=== PATIENT | male | born 1955 | race Caucasian/White ===

== ENCOUNTER 2025-08-06 06:56 | Outpatient (CLI) | payer MEDICARE, SELFPAY ==
--- OUTSIDE RECORDS SUMMARY | 2022-12-24 06:00 | XMS_ITS | Continuity of Care Document ---
Author Organization [facility] [place] Address [address] [place] [address] Phone Care Team Providers Care Interactive Marketing Strategist Name Role Phone Cortez Haywood MD Unavailable Unavailable Allergies, Adverse Reactions, Alerts Substance Reaction Status Criticality No Known Allergies Active No Inform ation Medications Medication Instructions Dosage Effective Dates (start - stop) Status Comments polymyxin B sulfate 10,000 unit-trimethoprim 1 mg/mL eye drops instill 1 drop by ophthalmic route in the operated eye BID; to begin after being seen in the office for first post op visit. - Active prednisolone acetate 1 % eye drops,suspension Instill 1 drop into Operated Eye QID x 2 weeks, BID x 2 weeks; to begin after being seen in the office for first post op visit. - Active ketorolac 0.5 % eye drops instill 1 drop in the operated eye 3 times a day x 1 month; to begin after being seen in the office for first post op visit. - Active metformin 500 mg tablet take 1 tablet by oral route 2 times every day with morning and evening meals 500 MG - Active famotidine 40 mg tablet take 1 tablet by oral route every day at bedtime 40 MG - Active losartan 50 mg tablet take 1 tablet by o ral route every day 50 MG - Active atorvastatin 40 mg tablet take 1 tablet by oral route every day 40 MG - Active gabapentin 100 mg capsule take 1 capsule by oral route 3 times every day 100 MG - Active finasteride 5 mg tablet take 1 tablet by oral route every day 5 MG - Active montelukast 10 mg tablet take 1 tablet by oral route every day in the evening 10 MG - Active Procedures Procedure Date No Charge Refraction Post-op Follow-up Visit Post-op Follow-up Visit Remove Cataract, Insert Lens No Charge Refraction Post-op Follow-up Visit Post-op Follow-up Visit Remove Cataract, Insert Lens No Charge Refraction Office/outpatient Visit, Est Corneal Topography Fundus Photography W/ Report No Charge Refraction Office/outpatient Visit, Est IOLMaster IOLMaster Post-op Follow-up Visit Post-op Follow-up Visit Post-op Follow-up Visit Pterygium Excison W/Graft Fundus Photography W/ Report No Charge Refraction No Charge GDX Retina Corneal Topography Office/outpatient Visit, [facility] IOLMaster IOLMaster Advance Directives Directive Yes / No Effective Date File Name No Information Encounters Encounter Description Practice Location Reason(s) For Visit Diagnoses Date Provider Providers Copied on Encounter [facility], [address] [address], [place], [place], [id number], [place] tel:[phone] SEC Anupam ALEMAN Professional Post-Op (chief complaint) Post op visit 3 Yobany Toro. [address] [facility], [facility] [address], [place], [place], [address], [place]. tel:[phone] Referring Provider: Chelly Corona OD L, [address], [place], [address]. tel:[phone] [facility], [address], [place], [place], [address], [place] tel:[phone] SEC Anupam ALEMAN Professional 1 day s/p PCIOL (chief complaint) Post op visit 3 Yobany Toro. [address] [employer], [address], [place], [place], [address], [place]. tel:[phone] Referring Provider: Chellylaxmi Corona OD L, [address], [place], [address]. tel:[phone] [facility], [address] [place] [address] [address], [place], [place], [address], [place] tel:[phone] [facility] [place] No Information 3 Sai Mccoy. [address] [place] [address], [address], [place], [place], [address], [place]. tel:[phone] Referring Provider: Chelly Corona OD L, [address], [place], [address]. tel:[phone] [facility], [address] [place] [address] [address], [place], [place], [address], [place] tel:[phone] SEC Anupam ALEMAN Professional 2 wk CE PO (11/11/22) (chief complaint) Post op visit 3 Yobany Toro. [address] [employer], [address], [place], [place], [address], [place]. tel:[phone] Referring Provider: Chelly Corona OD L, [address], [place], [address]. tel:[phone] [facility], [address], [place], [place], [address], tel:[phone] SEC Anupam ALEMAN Professional 1 day CE PO (chief complaint) Post op visit 3 Yobany Toro. [address] [facility], [address], [place], [place], [address], [place]. tel:[phone] Referring Provider: Chelly Corona OD L, [address] [place] [address], [address]. tel:[phone] [facility], [address], [place], [place], [address], tel:[phone] [facility] [place] No Information 3 Sai Darius. [facility] [employer], [address], [place], [place], [address], [place]. tel:[phone] Referring Provider: Chelly Corona OD L, [address] [place] [address], [address]. tel:[phone] [facility], [address], [place], [place], [address], [place] tel:[phone] SEC [place] No Information 2 [place] Darius. [address], [address], [place], [place], [address], [place]. tel:[phone] [place]pa [place] [facility] [place] [address], [place], [place], [address], tel:[phone] SEC [place] 6 month cataract eval (chief complaint) Type 2 diabetes mellitus without complication sCombined forms of age-related cataract, bilateral 2 [place] Darius. [address], [address], [place], [place], [address], [place]. tel:[phone] Referring Provider: Chelly Corona OD L, [address] [place] [address], [address]. tel:[phone] [place]pa [place], [facility] [place] [facility] [employer] [address], [place], [place], [address], tel:[phone] SEC [place] N [place] Cataract evaluation (chief complaint) Combined forms of age-related cataract, bilateralTyp e 2 diabetes mellitus without complication s 2 Sai Mccoy. [address], [address], [place], [place], [address], [place]. tel:[phone] Referring Provider: Chelly Corona OD L, [address], [place], [address]. tel:[phone] [employer] [facility] [employer] [facility], [address], [place], [place], [address], tel:[phone] SEC Guille N Lindberg[place] 2 wk Pterygium excision po (chief complaint) Post op visit Jan- 2 Sai Mccoy. [facility] [employer], [address], [place], [place], [address], [place]. tel:[phone] Referring Provider: Chelly Corona OD L, [address], [place], [address]. tel:[phone] [employer] [facility], [facility] [address], [place], [place], [address], tel:[phone] SEC Guille N Lind[place] 1 PTY Post-Op (chief complaint) Post op visit Jan- 2 Sai Mccoy. [facility] [employer], [address], [place], [place], [address], [place]. tel:[phone] Referring Provider: Chelly Corona OD L, [address], [place], [address]. tel:[phone] [employer] [facility], [address], [place], [place], [address], tel:[phone] SEC [place]heba N [place] Post-Op (chief complaint) Post op visit 2 Sai Mccoy. [address], [address], [place], [place], [address], . tel:[phone] Referring Provider: Chelly Corona OD L, [address], [place], [address]. tel:[phone] [facility], [address] [place] [address] [address], [place], [place], [address], tel:[phone] [facility] No Information 2 Sai Mccoy. [address] [place] [address] [employer] [facility], [address], [place], [place], [address], [place]. tel:[phone] Referring Provider: Chelly Corona OD L, [address], [place], [address]. tel:[phone] Office/outpa tient Visit, [facility], [address] [place] [address] [address], [place], [place], [address], tel:[phone] SEC Guille Galloway Cataract Evaluation (chief complaint) Peripheral pterygium, progressive, right eyeCombined forms of age-related cataract, bilateralTyp e 2 diabetes mellitus without complication s 1 Sai Mccoy. [address] [place] [address] [employer] [facility], [address], [place], [place], [address], . tel:[phone] Referring Provider: Chelly Corona OD L, [address], [place], [address]. tel:[phone] [facility], [address] [place] [address] [address], [place], [place], [address], [place] tel:[phone] SEC Guille N [place] No Information 1 Sailaura Mccoy. [address] [place] [address] [employer] [facility], [address], [place], [place], [address], . tel:[phone] Referring Provider: Chelly Corona OD L, [address], [place], [address]. tel:[phone] Family History Family Member Type Diagnosis Age At Onset Problem Family history of degenerati ve disorder of macula Problem Family history of Diabetes ernie schmitt Payers Payer name Insurance type Covered alliance party ID Authoriza tion(s) No Information Social History Type Description Quantity Date Captured Comments Alcohol Use Details No Caffeine Use Details Tobacco Use Status Ex-cigarette smoker 023 Smoking Status Former smoker Smoking Tobacco Use Details Cigarette: Age Started: 19, Age Stopped: 43, Years Used 24 Cigarette: 1 Packs per day, Pack Year: 24 Sex Male Chief Complaint And Reason For Visit From encounter dated '12/24/2022 11:00'. Post-Op (chief complaint). Description: The 67 year old patient presents for a 2 week post op CE OD(Dr. Gibbs). Patient is using Ketorolac tid OD and Pred bid OD. Patient states OD is doing good. Patient states vision OD seems pretty good. Reason For Referral Reason For Referral No Information Plan Of Treatment Date Type Action Status Goal Tobacco cessation counseling completed Goal Tobacco cessation counseling completed Goal Tobacco cessation counseling completed Goal Tobacco cessation counseling completed Patient Education Type 2 Diabetes: Care I nstructions completed Patient Education Cataracts: Care Instruc tions completed Patient Education Cataract Surgery: What to Expect at Home completed History Of Present Illness Encounter Date Complaint History Of Prese nt Illness Post-Op The 67 year old patient presents for a 2 week post op CE OD (Dr. Gibbs). Patient is using Ketorolac tid OD and Pred bid OD. Patient states OD is doing good. Patient states vision OD seems pretty good. 1 day s/p PCIOL The 67 year old patient presents for evaluation of 1 day s/p PCIOL in the right eye. Patient states VA is blurry with the right eyes. Patient instructed to use Pred, Ket, and Poly as well as use of eye shield. 2 wk CE PO (11/11/22) The 67 year old patient presents for evaluation of 2 wk CE PO (11/11/22) in the left eye. Pt reports he is using Pred BID OS and Ketorolac TID OS. Pt reports OS is doing good and he is seeing better since CE. Pt reports he would like to proceed with CE, OD, because he has trouble reading street signs while driving, avoids driving at night due to his vision, and is bothered by glare from lights, x several mos. 1 day CE PO The 67 year old patient presents for evaluation of 1 day CE PO in the left eye. Pt reports he is using Poly QID OS, Pred QID OS, and Ketorolac QID OS. PO instructions were given, explained, and understood by pt. Pt reports no pain or discomfort and VA is a lot better since CE, OS. 6 month cataract eval The 67 yea r old patient presents for evaluation of 6 month cataract eval in the right eye and left eye. Pt c/o the OS has definitely gotten worse, vision is blurry OU, difficult to see street signs OU, and has glaring at night time and daytime OU. Pt is not using gtts currently. Pt is NIDDM II does not check BS. Cataract evaluation The 67 year old patient presents for evaluation of Cataract evaluation in the right eye and left eye. Hx of Cataracts OU and Pterygium s/p Excision OD. Pt states VA blurry, like looking through a fog. Pt states it's difficult to drive at night due to headlight glare, having to get closer to street signs to see them clearly, DVA gradual decrease OU x 6+ mos. Pt also finds cleaning a sweep more difficult.Pt is NIDDM II and is unsure of A1c, but in the normal range. 2 wk Pterygium excision po The [age] year old patient presents for evaluation of 2 wk Pterygium excision po in the right eye 12-31-21. Pt using Pred and Poly OD, pt has been using the drops TID trying to hurry up the healing for the past couple days. Pt states OD is still very scratchy. 1 PTY Post-Op The 66 year old male presents for evaluation of 1 PTY Post-Op in the right eye 01/01/22. Pt reports his last week has been immensely difficult with OS VA being poor and having OD patched constantly. Pt is using Poly BID OD and Pred BID OD. Pt denies pain or discomfort at this time. Post-Op The 66 year old male presents for a 1 day post op Pterygium excision with autograft OD. Patient to begin Pred and Poly qid OD. Patient denies any pain or discomfort OD. Patient states OD itches. Cataract Evaluation The 66 year old male presents for evaluation of Cataract Evaluation in the right eye and left eye. Pt states that for years he noticed that his vision would be blurry when he would be inside with fluorescent lights and recently noticed that his vision is blurry even while outside at ball games. Pt does not currently use any eye gtts. Pt has not had any eye surgeries or procedures in the past. Pt states that he has noticed he has become sensitive to glare from headlights at night. Pt is NIDDM Type II with last A1C unknown and last blood sugar of 130 x 2 days. Followed by PCP. Pt states that he has noticed that he has to be closer to road signs to be able to read them now and doing work up close has become a little more difficult. Pt states that he has noticed that he feels dizzy when he is performing tasks like sweeping. Functional Status Date Functional Assessmen t No Information Instructions Date Instruction Additional Infor jeanette Impression/Plan Impression/Plan Impression/Plan Impression/Plan Impression/Plan Impression/Plan Impression/Plan Impression/Plan Impression/Plan Impression/Plan Assessments Type Assessment Date assessment Post op visit Patient Care Teams Name Effective Dates (start - stop) Status Members No Information
--- OUTSIDE RECORDS SUMMARY | 2024-12-13 03:10 | XMS_ITS ---
Author Organization [facility] Address [address] [place], [place] [address] Care Team Providers Care Solar Installation Helper Name Role Phone ADDY FORREST Unavailable [phone] José Miguel Cramer Unavailable Unavailable REASON FOR VISIT Patient presents for at-risk foot care . The patient has painful toenails and calluses that are causing difficulty with ambulation and shoegear. The onset is gradual Medications Medication SIG (Take, Route, Frequency, Duration) Notes Start Date End Date Status Ketorolac Tromethamine 0.5 % Ophthalmic; Duration: 30 Days Active Metoprolol Succinate ER 50 MG Oral; Duration: 30 Days Acti ve Eliquis 5 MG Oral; Duration: 30 Days Active prednisoLONE Acetate 1 % Ophthalmic; Dur ation: 30 Days Active Encounters Encounter Location Date Provider Diagnosis [address] [id number] 12/13/2024 ADDY FORREST Tinea unguium B35.1 ; Acquired keratosis [keratoderma] palmaris et plantaris L85.1 ; Atherosclerosis of [place] arteries of extremities with intermittent claudication, bilateral legs I70.213 ; Pain in right foot M79.671 and Pain in left foot M79.672 Assessments Encounter Date Diagnosis (ICD Code) Assessment Notes Treatment Notes Treatment Clinical Notes Section Notes 12/13/2024 Tinea unguium (ICD-10 - B35.1) Nails 1-5 Bilateral were debrided extensively with nail nippers and emery board, reducing length and girth to pink healthy tissue with any subungual debris and necrotic tissue removed 12/13/2024 Acquired keratosis [keratoderma] palmaris et plantaris (ICD-10 - L85.1) A total of 2 corns or calluses, as described in the note above, were cut and pared utilizing a #15 blade. Emollient: Recommend that the patient use an emollient such as iuom-isw-prquix r Eucerin cream, Vanicream, or other lotion to the affected area. 12/13/2024 Atherosclerosis of [place] arteries of extremities with intermittent claudication, bilateral legs (ICD-10 - I70.213) 12/13/2024 Pain in right foot (ICD-10 - M79.671) 12/13/2024 Pain in left foot (ICD-10 - M79.672) Plan Of Treatment Treatment Notes Assessment Notes Tinea unguium Nails 1-5 Bilateral were debrided extensively with nail nippers and emery board, reducing length and girth to pink healthy tissue with any subungual debris and necrotic tissue removed Acquired keratosis [keratode rma] palmaris et plantaris A total of 2 corns or calluses, as described in the note above, were cut and pared utilizing a #15 blade. Emollient: Recommend that the patient use an emollient such as casv-wsx-dktkwud Eucerin cream, Vanicream, or other lotion to the affected area. Next Appt Details Follow Up: 10 - 12 weeks, Re ason: At-Risk Foot care, sooner if problems develop. Provider Name:JOLANTA NIEVES, 09/12/2025 08:50:00 AM, [address] [place] [address], [id number], Progress Notes * NELY COOKDOB:1955 (70 yo M)Acc No.[id number]:12/13/2024 Patient: NELY PINTO Provider: Sanjuana Forrest DPM :1955 A ge:69 Y S ex:Male Date:12/13/2024 Address:[address] [place], [place] [id number] Subjective: * Chief Complaints: * 1 . Patient presents for at-risk foot care . The patient has painful toenails and calluses that are causing difficulty with ambulation and shoegear. The onset is gradual. * HPI: H PI: General care P atient presents to the office for diabetic foot care. Patient states that their nails are thickened, elongated and painful. Patient states that it is aggravated by shoe gear. Onset is gradual., Patient is taking prescription blood thinners., Date last seen by Dr. Cramer was 11/2024., Initials mca. * ROS: G eneral / Constitutional: Patient denies w eakness. E ndocrine: Patient denies c old intolerance, hair loss, irregular menses. R espiratory: Patient denies c hronic cough, shortness of breath, sputum production. C ardiovascular: Patient denies c hest pain, history of SD, irregular heartbeat. M usculoskeletal: Patient complains of a rch pain, hammertoes. ? P eripheral Vascular: Patient denies b lanching of skin, cold extremities, decreased sensation in extremities. S kin: Patient complains of f ungal nails, nail changes, calluses and corns. N eurologic: Patient denies d izziness, gait abnormality, headache. * Medical History: * Medications: T aking Eliquis 5 MG Tablet Oral , Taking Metoprolol Succinate ER 50 MG Tablet Extended Release 24 Hour Oral , Taking Ketorolac Tromethamine 0.5 % Solution Ophthalmic , Taking prednisoLONE Acetate 1 % Suspension Ophthalmic , Medication List reviewed and reconciled with the patient Objective: * Vitals: * Examination: P hysical Examination: General appearance: A lert, pleasant, well-nourished and in no acute distress. D ermatologic: Skin findings: S kin is thin, atrophic and lacking pedal hair. Hypertrophic / hyperkeratotic lesion: p lantar aspect of the right 5th metatarsal head, plantar aspect of the left 1st metatarsal head. Nail pathology: N ails 1, 2, 3, 4, and 5 bilateral are elongated, thick, discolored, and dystrophic with subungual debris. They are painful to palpation. ? V ascular: Dorsalis pedis pulse: 1 /4 b ilateral. Posterior tibial pulse: 0 /4 bilateral. Capillary refill: g reater than 3 seconds. Edema: N o edema bilateral. N eurologic: Gross sensation G rossly intact to light touch. There is negative Tinel's sign. M usculoskeletal: Muscle Strength M uscle strength is 5/5 in regards to dorsiflexion, plantarflexion, inversion, and eversion in bilateral lower extremities. ? Assessment: * Assessment: 1. T brendaa ungjefferyum - B35.1 (Primary) 2 . A cquired keratosis [keratoderma] palmaris et plantaris - L85.1 3 . A therosclerosis of [place] arteries of extremities with intermittent claudication, bilateral legs - I70.213 4 . P ain in right foot - M79.671 5 . P ain in left foot - M79.672 Plan: * Treatment: 2. A cquired keratosis [keratoderma] palmaris et plantaris Notes: A total of 2 corns or calluses, as described in the note above, were cut and pared utilizing a #15 blade. Emollient: Recommend that the patient use an emollient such as vsjq-lsl-ywjfisp Eucerin cream, Vanicream, or other lotion to the affected area. * Follow Up: 1 0 - 12 weeks (Reason: At-Risk Foot care, sooner if problems develop.) * Billing Information: * Visit Code: 33948 Office Visit, Est Pt., Level 3. * Procedure Codes: * Electronic signature of ADDY FORREST DPM on 08/06/2025 at 07:07 AM CDT Sign off status: Pending * Provider: Sanjuana Forrest DPM Date: 0 12/13/2024 Generated for Dustin webster/Nirav/Dorotaitting on: 0 08/06/2025 07:07 AM CDT History and Physical Notes * HPI (History of Present Illness) Category Sub-Category Detail Notes Category Not es HPI General care Patient presents to the office for diabetic foot care. Patient states that their nails are thickened, elongated and painful. Patient states that it is aggravated by shoe gear. Onset is gradual., Patient is taking prescription blood thinners., Date last seen by Dr. Cramer was 11/2024., Initials mca Examination Category Sub-Category Detail Notes Category Not es Dermatologic Skin findings: Skin is thin, at rophic and lacking pedal hair Nail pathology: Nails 1, 2, 3, 4, an d 5 bilateral are elongated, thick, discolored, and dystrophic with subungual debris. They are painful to palpation Hypertrophic / hyperkeratotic lesion: pl tl aspect of the right 5th metatarsal head, plantar aspect of the left 1st metatarsal head Neurologic Gross sensation Grossly intact t o light touch. There is negative Tinel's sign Vascular Dorsalis pedis pulse: 1/4 bilateral Edema: No edema bilateral Capillary refill: greater than 3 secon ds Posterior tibial pulse: 0/4 bilateral Physical Examination General appearance: Alert, pleasant, well-nourished and in no acute distress Musculoskeletal Muscle Strength Muscle strength is 5/5 in regards to dorsiflexion, plantarflexion, inversion, and eversion in bilateral lower extremities
--- OUTSIDE RECORDS SUMMARY | 2025-05-09 04:30 | XMS_ITS ---
Author Organization [facility] Address [address] [place], [place] [id number] Care Team Providers Care Bead Preparer Name Role Phone ADDY FORREST Unavailable [phone] José Miguel Cramer Unavailable Unavailable JOLANTA HENSLEY Unavailable [phone] Allergies No Known Allergies REASON FOR VISIT *General care Medications Medication SIG (Take, Route, Frequency, Duration) Notes Start Date End Date Status prednisoLONE Acetate 1 % Ophthalmic; Dur ation: 30 Days Active Metoprolol Succinate ER 50 MG Oral; Duration: 30 Days Acti ve Ketorolac Tromethamine 0.5 % Ophthalmic; Duration: 30 Days Active Eliquis 5 MG Oral; Duration: 30 Days Active Vital Signs Height 70.00 in 05/09/2025 Weight 235 lbs 05/09/2025 BMI 33.72 kg/m2 05/09/2025 Height-cm 177.80 cm 05/09/2025 Weight-kg 106.6 kg 05/09/2025 Encounters Encounter Location Date Provider Diagnosis [address] [id number] 05/09/2025 JOLANTA HENSLEY Tinea unguium B35.1 ; Acquired keratosis [keratoderma] palmaris et plantaris L85.1 ; Atherosclerosis of [place] arteries of extremities with intermittent claudication, bilateral legs I70.213 ; Pain in right foot M79.671 and Pain in left foot M79.672 Assessments Encounter Date Diagnosis (ICD Code) Assessment Notes Treatment Notes Treatment Clinical Notes Section Notes 05/09/2025 Tinea unguium (ICD-10 - B35.1) Nails 1-5 Bilateral were debrided extensively with nail nippers and emery board, reducing length and girth to pink healthy tissue with any subungual debris and necrotic tissue removed 05/09/2025 Acquired keratosis [keratoderma] palmaris et plantaris (ICD-10 - L85.1) A total of 5 corns or calluses, as described in the note above, were cut and pared utilizing a #15 blade 05/09/2025 Atherosclerosis of [place] arteries of extremities with intermittent claudication, bilateral legs (ICD-10 - I70.213) Patient educated on risks and aggravating factors of PVD, including conservative treatment options such as a diet and exercise regimen to aid in slowing progression of vascular disease. Check and protect LE bilateral daily. Call if any changes or concerns. Consider orthotics 05/09/2025 Pain in right foot (ICD-10 - M79.671) 05/09/2025 Pain in left foot (ICD-10 - M79.672) Plan Of Treatment Treatment Notes Assessment Notes Tinea unguium Nails 1-5 Bilateral were debrided extensively with nail nippers and emery board, reducing length and girth to pink healthy tissue with any subungual debris and necrotic tissue removed Acquired keratosis [keratode rma] palmaris et plantaris A total of 5 corns or calluses, as described in the note above, were cut and pared utilizing a #15 blade Atherosclerosis of [place] ar teries of extremities with intermittent claudication, bilateral legs Patient educated on risks and aggravating factors of PVD, including conservative treatment options such as a diet and exercise regimen to aid in slowing progression of vascular disease. Check and protect LE bilateral daily. Call if any changes or concerns. Consider orthotics Next Appt Details Follow Up: 10 - 12 weeks, Re ason: At-Risk Foot care, sooner if problems develop. Provider Name:JOLANTA NIEVES, 09/12/2025 08:50:00 AM, [address] [place] [address], [id number], Progress Notes * NELY COOKDOB:1955 (70 yo M)Acc No.[id number]:05/09/2025 Patient: NELY PINTO Provider: Carmella HENSLEY :1955 A ge:70 Y S ex:Male Date:05/09/2025 Address:[address] [place] [address], [place] [address] Subjective: * Chief Complaints: * 1 . *General care. * HPI: H PI: General care P vlad presents to the office for diabetic foot care. He plays and coaches golf and fishing. He has had a wound sub left 1st previously which is not a dsicolored callus with pain. Patient states that their nails are thickened, elongated and painful. Patient states that it is aggravated by shoe gear. Onset is gradual. Patient is taking prescription blood thinners. Date last seen by Dr. Cramer was 03/2025. Initials sea. * ROS: G eneral / Constitutional: Patient denies w eakness. E ndocrine: Patient denies c old intolerance, hair loss, irregular menses. R espiratory: Patient denies c hronic cough, shortness of breath, sputum production. C ardiovascular: Patient denies c hest pain, history of [place], irregular heartbeat. M usculoskeletal: Patient complains of a h pain, hammertoes. ? P eripheral Vascular: Patient denies b lanching of skin, cold extremities, decreased sensation in extremities. S kin: Patient complains of f ungal nails, nail changes, calluses and corns. N eurologic: Patient denies d izziness, gait abnormality, headache. * Medical History: M edical History Verified. * Family History: F ather: PRN - Father: :: Stroke,,known absent , :: Heart disease,,known absent . S ister: SIB - Sister: :: Cancer,,known absent . * Social History: M igrated Social History: M igrated Social History: History of tobacco use : , Smoking Status : Former tobacco user. * Medications: T aking Eliquis 5 MG Tablet Oral , Taking Metoprolol Succinate ER 50 MG Tablet Extended Release 24 Hour Oral , Taking Ketorolac Tromethamine 0.5 % Solution Ophthalmic , Taking prednisoLONE Acetate 1 % Suspension Ophthalmic , Medication List reviewed and reconciled with the patient * Allergies: N .K.D.A. Objective: * Vitals: W t:235lbs, Wt-k.6 kg, Ht: 70.00 in, Ht-cm: 177.80 cm, BMI:33.72Index, Body Surface Area: 2.29. * Examination: P hysical Examination: General appearance: A lert, pleasant, well-nourished and in no acute distress. D ermatologic: Skin findings: S kin is thin, atrophic and lacking pedal hair. Hypertrophic / hyperkeratotic lesion: p lantar aspect of the bilateral 5th metatarsal head, and plantar aspect of bilateral 1st MTPJ and a left 1st sub IPJ deep painful pre-ulcerative callus with central discoloration. no heat, no fluctuance, no malodor or drainage. Area has no erythema or edema noted.. Nail pathology: N ails 1, 2, 3, [...] extremities. ? Assessment: * Assessment: 1. T inea unguium - B35.1 (Primary) 2 . A cquired keratosis [keratoderma] palmaris et plantaris - L85.1 3 . A therosclerosis of [place] arteries of extremities with intermittent claudication, bilateral legs - I70.213 4 . P ain in right foot - M79.671 5 . P ain in left foot - M79.672 Plan: * Treatment: 2. A cquired keratosis [keratoderma] palmaris et plantaris Notes: A total of 5 corns or calluses, as described in the note above, were cut and pared utilizing a #15 blade 3. A therosclerosis of [place] arteries of extremities with intermittent claudication, bilateral legs Notes: Patient educated on risks and aggravating factors of PVD, including conservative treatment options such as a diet and exercise regimen to aid in slowing progression of vascular disease. Check and protect LE bilateral daily. Call if any changes or concerns. Consider orthotics * Follow Up: 1 0 - 12 weeks (Reason: At-Risk Foot care, sooner if problems develop.) * Billing Information: * Visit Code: 77913 Office Visit, Est Pt., Level 3. * Procedure Codes: * Electronic signature of ANUPAMA KARRIESanjuana HENSLEY DPM on 08/06/2025 at 07:05 AM CDT Sign off status: Pending * Provider: Carmella HENSLEY Date: 0 05/09/2025 Generated for Dustin webster/Nirav/Keith on: 0 08/06/2025 07:05 AM CDT History and Physical Notes * HPI (History of Present Illness) Category Sub-Category Detail Notes Category Not es HPI General care Patient presents to the office for diabetic foot care. He plays and coaches golf and fishing. He has had a wound sub left 1st previously which is not a dsicolored callus with pain. Patient states that their nails are thickened, elongated and painful. Patient states that it is aggravated by shoe gear. Onset is gradual. Patient is taking prescription blood thinners. Date last seen by Dr. Cramer was 03/2025. Initials sea Examination Category Sub-Category Detail Notes Category Not es Dermatologic Skin findings: Skin is thin, at rophic and lacking pedal hair Nail pathology: Nails 1, 2, 3, 4, an d 5 bilateral are elongated, thick, discolored, and dystrophic with subungual debris. They are painful to palpation Hypertrophic / hyperkeratotic lesion: pl tl aspect of the bilateral 5th metatarsal head, and plantar aspect of bilateral 1st MTPJ and a left 1st sub IPJ deep painful pre-ulcerative callus with central discoloration. no heat, no fluctuance, no malodor or drainage. Area has no erythema or edema noted. Neurologic Gross sensation Grossly intact t o [...]
--- OUTSIDE RECORDS SUMMARY | 2025-07-11 04:30 | XMS_ITS ---
Author Organization [facility] Address [address] [place], [place] [id number] Care Team Providers Care Group Leader [employer] Processing Name Role Phone ADDY FORREST Unavailable [phone] José Miguel Cramer Unavailable Unavailable JOLANTA HENSLEY Unavailable [phone] Allergies No Known Allergies REASON FOR VISIT *General care Medications Medication SIG (Take, Route, Frequency, Duration) Notes Start Date End Date Status Ketorolac Tromethamine 0.5 % Ophthalmic; Duration: 30 Days Active prednisoLONE Acetate 1 % Ophthalmic; Dur ation: 30 Days Active Eliquis 5 MG Oral; Duration: 30 Days Active Metoprolol Succinate ER 50 MG Oral; Duration: 30 Days Acti ve Vital Signs Height 70.00 in 07/11/2025 Weight 235 lbs 07/11/2025 BMI 33.72 kg/m2 07/11/2025 Height-cm 177.80 cm 07/11/2025 Weight-kg 106.6 kg 07/11/2025 Encounters Encounter Location Date Provider Diagnosis [address] [id number] 07/11/2025 JOLANTA HENSLEY Tinea unguium B35.1 ; Acquired keratosis [keratoderma] palmaris et plantaris L85.1 ; Atherosclerosis of [place] arteries of extremities with intermittent claudication, bilateral legs I70.213 ; Pain in right foot M79.671 and Pain in left foot M79.672 Assessments Encounter Date Diagnosis (ICD Code) Assessment Notes Treatment Notes Treatment Clinical Notes Section Notes 07/11/2025 Tinea unguium (ICD-10 - B35.1) Nails 1-5 Bilateral were debrided extensively with nail nippers and emery board, reducing length and girth to pink healthy tissue with any subungual debris and necrotic tissue removed 07/11/2025 Acquired keratosis [keratoderma] palmaris et plantaris (ICD-10 - L85.1) A total of 5 corns or calluses, as described in the note above, were cut and pared utilizing a #15 blade 07/11/2025 Atherosclerosis of [place] arteries of extremities with intermittent claudication, bilateral legs (ICD-10 - I70.213) Patient educated on risks and aggravating factors of PVD, including conservative treatment options such as a diet and exercise regimen to aid in slowing progression of vascular disease. Check and protect LE bilateral daily. Call if any changes or concerns. Consider orthotics 07/11/2025 Pain in right foot (ICD-10 - M79.671) 07/11/2025 Pain in left foot (ICD-10 - M79.672) [...] pared utilizing a #15 blade Atherosclerosis of [place] ar teries of extremities with intermittent claudication, [...] develop. Provider Name:JOLANTA NIEVES, 09/12/2025 08:50:00 AM, [address] [place] [address], [id number], Progress Notes * NELY COOKDOB:1955 (70 yo M)Acc No.[id number]:07/11/2025 Patient: NELY PINTO Provider: Carmella HENSLEY :1955 A ge:70 Y S ex:Male Date:07/11/2025 Address:[address] [place] [address] Subjective: * Chief Complaints: * 1 . *General care. * HPI: H PI: General care P vlad presents to the office for diabetic foot care. Patient states that their nails are thickened, elongated and painful. Patient states that it is aggravated by shoe gear. Onset is gradual., Patient is taking prescription blood thinners., Date last seen by Dr. Brown was 05/2025., Initials nd. * ROS: G eneral / Constitutional: Patient denies w eakness. E ndocrine: Patient denies c old intolerance, hair loss, irregular menses. R espiratory: Patient denies c hronic cough, shortness of breath, sputum production. C ardiovascular: Patient denies c hest pain, history of [place], irregular heartbeat. M usculoskeletal: Patient complains of a rch pain, hammertoes. ? P eripheral Vascular: Patient denies b lanching of skin, cold extremities, decreased sensation in extremities. S kin: Patient complains of f ungal nails, nail changes, calluses and corns. N eurologic: Patient denies d izziness, gait abnormality, headache. * Medical History: N o Reported Medical History.Medical History Verified. * Surgical History: D enies Past Surgical History. * Hospitalization/Major Diagno stic Procedure: D enies Past Hospitalization. * Family History: F ather: PRN - [...] - L85.1 3 . A therosclerosis of [place] arteries of extremities with intermittent claudication, bilateral [...] a #15 blade 3. A therosclerosis of [place] arteries of extremities with intermittent claudication, bilateral [...] develop.) * Billing Information: * Visit Code: 61569 Office Visit, Est Pt., Level 3. * Procedure Codes: * Electronic signature of ANUPAMA HENSLEY DPM on 08/06/2025 at 07:07 AM CDT Sign off status: Pending * Provider: Carmella HENSLEY Date: 0 07/11/2025 Generated for Dustin webster/Nirav/Keith on: 0 08/06/2025 07:07 AM CDT History [...] blood thinners., Date last seen by Dr. Brown was 05/2025., Initials nd Examination Category Sub-Category Detail Notes Category Not [...]
--- OUTSIDE RECORDS SUMMARY | 2025-08-06 07:05 | XMS_ITS | Patient Health Record ---
Author Organization [facility] Address [address] [place], [place] [address] Care Team Providers Care Car Dryer Name Role Phone AMIRA ADDY Unavailable [phone] José Miguel Cramer Unavailable Unavailable JOSE MANUELHAFSA ACHARYAUR Unavailable [phone] ANUPAMA HENSLEYELLE Unavailable [phone] Allergies No Known Allergies Reason For Referral No Information Medications Medication SIG (Take, Route, Frequency, Duration) Notes Start Date End Date Status Ketorolac Tromethamine 0.5 % Ophthalmic; Duration: 30 Days Active prednisoLONE Acetate 1 % Ophthalmic; Dur ation: 30 Days Active Eliquis 5 MG Oral; Duration: 30 Days Active Metoprolol Succinate ER 50 MG Oral; Duration: 30 Days Acti ve Immunizations Vaccine Route Administration Date Status Comme nts Influenza, high dose seasonal Unknown 11/03/2023 Admini stered Vital Signs Height-cm 177.80 cm 07/11/2025 Weight-kg 106.6 kg 07/11/2025 Height 70.00 in 07/11/2025 Weight 235 lbs 07/11/2025 BMI 33.72 kg/m2 07/11/2025 Encounters Encounter Location Date Provider Diagnosis [address] [id number] 12/13/2024 ADDY FORREST Tinea unguium B35.1 ; Acquired keratosis [keratoderma] palmaris et plantaris L85.1 ; Atherosclerosis of [place] arteries of extremities with intermittent claudication, bilateral legs I70.213 ; Pain in right foot M79.671 and Pain in left foot M79.[address] [id number] 05/09/2025 JOLANTA HENSLEY Tinea unguium B35.1 ; Acquired keratosis [keratoderma] palmaris et plantaris L85.1 ; Atherosclerosis of [place] arteries of extremities with intermittent claudication, bilateral legs I70.213 ; Pain in right foot M79.671 and Pain in left foot M79.[address] [id number] 07/11/2025 JOLANTA HENSLEY Tinea unguium B35.1 ; Acquired keratosis [keratoderma] palmaris et plantaris L85.1 ; Atherosclerosis of [place] arteries of extremities with intermittent claudication, bilateral legs I70.213 ; Pain in right foot M79.671 and Pain in left foot M79.[address] [id number] 09/20/2024 BRIAN GARCES Tinea unguium B35.1 ; Other hammer toe(s) (acquired), right foot M20.41 ; Other hammer toe(s) (acquired), left foot M20.42 ; Pain in right toe(s) M79.674 ; Pain in left toe(s) M79.675 ; Unspecified atherosclerosis of [place] arteries of extremities, bilateral legs I70.203 ; Type 2 diabetes mellitus with diabetic peripheral angiopathy without gangrene E11.51 ; Acquired keratosis [keratoderma] palmaris et plantaris L85.1 ; Pain in right foot M79.671 and Pain in left foot M79.[address] [id number] 03/07/2025 ADDY FORREST Tinea unguium B35.1 ; Acquired keratosis [keratoderma] palmaris et plantaris L85.1 ; Atherosclerosis of [place] arteries of extremities with intermittent claudication, bilateral legs I70.213 ; Pain in right foot M79.671 and Pain in left foot M79.672 Assessments Encounter Date Diagnosis (ICD Code) Assessment Notes Treatment Notes Treatment Clinical Notes Section Notes 09/20/2024 Tinea unguium (ICD-10 - B35.1) Aseptic debridement of elongated thickened nails x 10 using sterile nippers, nails were debrided in length and thickness by 30% utilizing a nail nipper without incident. The patient was educated regarding all treatment options that include topical and oral antifungal treatments. I discussed the options of taking a sample of the nail to confirm diagnosis. Nail clippings were not sent for pathology analysis. The patient was educated why and how the fungal infection evolved in their feet and the patient was given information regarding how to prevent further infection. The patient was told to keep feet dry and change socks. The patient was told to be careful with old shoes and excessive sweating. The patient was educated regarding both OTC and prescription treatments. 09/20/2024 Other hammer toe(s) (acquired), right foot (ICD-10 - M20.41) The patient was educated regarding how to mechanically stabilize their deformity. The patient was given education about shoe recommendations specific for the condition. The patient was educated about custom orthotics and how appropriate shoes and orthotics can prevent further worsening of the deformity. The patient was educated about how bad shoe habits can worsen the condition. NSAIDS, P.T., injections and other conservative treatments were discussed. Both surgical and non surgical treatments were discussed, but conservative options were emphasized. 12/13/2024 Tinea unguium (ICD-10 - B35.1) Nails [...] the patient use an emollient such as [id number] Eucerin cream, Vanicream, or other lotion to the affected area. 03/07/2025 Tinea unguium (ICD-10 - B35.1) Nails 1-5 Bilateral were debrided extensively with nail nippers and emery board, reducing length and girth to pink healthy tissue with any subungual debris and necrotic tissue removed 03/07/2025 Acquired keratosis [keratoderma] palmaris et plantaris (ICD-10 - L85.1) A total of 2 corns or calluses, as described in the note above, were cut and pared utilizing a #15 blade 05/09/2025 Tinea unguium (ICD-10 - B35.1) Nails [...] and pared utilizing a #15 blade 07/11/2025 Tinea unguium (ICD-10 - B35.1) Nails [...] utilizing a #15 blade 07/11/2025 Atherosclerosis of [place] arteries of extremities with intermittent claudication, bilateral legs (ICD-10 - I70.213) Patient educated on risks and aggravating factors of PVD, including conservative treatment options such as a diet and exercise regimen to aid in slowing progression of vascular disease. Check and protect LE bilateral daily. Call if any changes or concerns. Consider orthotics 05/09/2025 Atherosclerosis of [place] arteries of extremities with intermittent claudication, bilateral legs (ICD-10 - I70.213) Patient educated on risks and aggravating factors of PVD, including conservative treatment options such as a diet and exercise regimen to aid in slowing progression of vascular disease. Check and protect LE bilateral daily. Call if any changes or concerns. Consider orthotics 03/07/2025 Atherosclerosis of [place] arteries of extremities with intermittent claudication, bilateral legs (ICD-10 - I70.213) 12/13/2024 Atherosclerosis of [place] arteries of extremities with intermittent claudication, bilateral legs (ICD-10 - I70.213) 09/20/2024 Other hammer toe(s) (acquired), left foot (ICD-10 - M20.42) 12/13/2024 Pain in right foot (ICD-10 - M79.671) 09/20/2024 Pain in right toe(s) (ICD-10 - M79.674) 03/07/2025 Pain in right foot (ICD-10 - M79.671) 05/09/2025 Pain in right foot (ICD-10 - M79.671) 07/11/2025 Pain in right foot (ICD-10 - M79.671) 07/11/2025 Pain in left foot (ICD-10 - M79.672) 05/09/2025 Pain in left foot (ICD-10 - M79.672) 03/07/2025 Pain in left foot (ICD-10 - M79.672) 09/20/2024 Pain in left toe(s) (ICD-10 - M79.675) 12/13/2024 Pain in left foot (ICD-10 - M79.672) 09/20/2024 Unspecified atherosclerosis of [place] arteries of extremities, bilateral legs (ICD-10 - I70.203) Patient educated on risks and aggravating factors of PVD, including conservative treatment options such as a diet and exercise regimen to aid in slowing progression of vascular disease 09/20/2024 Type 2 diabetes mellitus with diabetic peripheral angiopathy without gangrene (ICD-10 - E11.51) Patient educated on proper diabetic foot care and the importance of tight glycemic control in regards to the prevention of diabetic manifestations and symptomatology in lower extremity. Explained to patient the importance of keeping interdigital spaces dry, not walking bare foot, having supportive shoe gear, using moisturizer to skin on feet daily especially in winter months, and checking feet daily for any new lesions or areas suspicious of trauma infection or ulceration. Explained to patient to return to ED if any change in foot health associated with signs of systemic infection including but not limited to nausea, vomiting, fever. 09/20/2024 Acquired keratosis [keratoderma] palmaris et plantaris (ICD-10 - L85.1) Pre-ulcerative keratoderma debrided sharply down to the level of healthy tissue using a 15 blade to bilateral foot sub fifth metatarsal head. After removal of overlying extensive hyperkeratosis, healthy tissue was noted and care was taken to assure that no undermining or probing was present. It should be noted that no probing was noted and no infection or drainage was noted. 09/20/2024 Pain in right foot (ICD-10 - M79.671) 09/20/2024 Pain in left foot (ICD-10 - M79.672) Plan Of Treatment Next Appt Details Provider Name:JOLANTA Zac NIEVES, 09/12/2025 08:50:00 AM, [address] [place] [address], [id number], Insurance Providers Payer Name Payer Address Payer Phone Subscriber Number Group Number Insured Name Patient Relationship to Insured Coverage Start Date Coverage End Date [facility] [address] [address] [place], [place] [id number] NELY COOK Self - patient is the insured
--- OUTSIDE RECORDS SUMMARY | 2025-08-06 07:06 | XMS_ITS | Encounter Summary ---
Author Organization [employer] Address 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
--- OUTSIDE RECORDS SUMMARY | 2025-08-06 07:06 | XMS_ITS | Encounter Summary ---
Author Organization [employer] Address 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
--- OUTSIDE RECORDS SUMMARY | 2025-08-06 07:06 | XMS_ITS | Clinical Summary ---
Author Organization [facility] Address [address] [facility] Attn: [place] [address] Care Team Providers Care Senior Management Consultant Name Role Phone Unavailable Primary Care Provider Unavailabl e Social History Tobacco Use Types Packs/Day Years Used Date Smoking Tobacco: Never Assessed Sex and Gender Information Value Date Recorded Sex Assigned at Not on file Legal Sex Male 2:52 AM [employer] Gender Identity Not on file Sexual Orientation Not on file Plan of Treatment Health Maintenance Due Date Last Done Comments DTAP/TDAP/TD VACCINES (1 - Tdap) 01/16/1972 COLORECTAL SCREENING 1998 Colorectal Cancer Screening 1998 FIT-DNA Q 3 years 1998 FIT/FOBT Q 1 year 1998 Flex Sig/CT Colonography Q 5 years 1998 PNEUMOCOCCAL VACCINE 50+ YEARS (1 of 1 - PCV) 01/16/20 03 ZOSTER VACCINE (1 of 2) 2003 INFLUENZA VACCINE (#1) 2025 RSV VACCINE (60+ or ) (1 - 1-dose 75+ series) 01/16/2028
[2025-08-06 07:22] LABS: Add Urine Microscopic? YES; Appearance Urine Clear (Clear); Glucose Urine UA Negative (Negative); Leukocyte Esterase Ur Trace (Negative); Nitrate Urine Positive (Negative); Specific Grav Ur 1.020 (1.010-1.020)
[2025-08-06 07:23] LABS: Hematocrit 46.7 % (37.0-46.0); Hemoglobin 15.0 g/dL (12.4-15.3); Immature Granulocyte Percent A 0.3 % (0.0-0.0); Lymphocytes Absolute Auto 2.80 K/mm3 (1.10-4.50); Mean Corpuscular HGB Conc 32.1 g/dL (32-36); Mean Corpuscular Hemoglobin 30.5 pg (27.0-31.0); Mean Corpuscular Volume 95.1 fL (78.0-102.0); Nucleated Red Blood Cells Absolute Auto 0.00 K/mm3 (0.00-0.00); Nucleated Red Blood Cells Perc 0.0 % (0-0.0); Platelet Count Result 204 K/mm3 (150-420); Red Blood Count 4.91 M/mm3 (4.70-6.10); White Blood Count 7.4 K/mm3 (4.8-10.8)
[2025-08-06 07:34] LABS: MALB Creatinine Ratio 18.4 mg/g (0-30)
[2025-08-06 07:40] LABS: Hemoglobin A1C 6.8 % (<5.7)
[2025-08-06 08:00] LABS: Alanine Aminotransferase 57 U/L (6-50); Albumin Level 4.5 g/dL (3.5-5.1); Alkaline Phosphatase 59 U/L (38-126); Anion Gap 11 mmol/L (4-12); Aspartate Amino Transferase 40 U/L (17-59); Bilirubin,Total 0.7 mg/dL (0.2-1.3); Blood Urea Nitrogen 19 mg/dL (9-20); Calcium 9.7 mg/dL (8.4-10.2); Carbon Dioxide 30 mmol/L (22-30); Chloride 102 mmol/L (98-107); Cholesterol 119 mg/dL (0-200); Estimated Glomerular Filt Rate > 60; Glucose 132 mg/dL (65-110); HDL Direct 35 mg/dL; Osmolality Calculated 300 mOsm/kg (285-295); Potassium 5.2 mmol/L (3.4-5.0); Sodium 143 mmol/L (137-145); Total Protein 7.4 g/dL (6.3-8.2); Triglycerides 234 mg/dL (<150)
== END 2025-08-06 06:57 | disposition home or self-care (01) ==
LOC: CHSLAB 07:03
PROVIDERS: PCP Internal Medicine; Visit Provider Internal Medicine
DX: I10 Essential (primary) hypertension (principal); E11.9 Type 2 diabetes mellitus without complications; E78.5 Hyperlipidemia, unspecified
CPT/HCPCS: 36415; 80053; 80061; 81001; 82043; 83036; 85025